=== PATIENT | female | born 1955 | race Hispanic/Latino ===

== ENCOUNTER → 2017-05-02 | Outpatient (CLI) | payer MEDICAID ==
[~2017-05-02] MED LIST: ALBU8.5H8 IH; APIX5TAB PO; ASPI-1197 PO; DOXY200T3 PO; FURO20TA6 PO; LACT10SO9 PO; LISI-613 PO; LISI10TA7 PO; OMEP40CA37 PO; SPIR50TA3 PO
[2017-05-02 10:20] LABS: ALBUMIN 1.8 g/dL (3.5-5.0); BASOPHILS % (AUTO) 0.7 % (0.0-5.0); BILIRUBIN,TOTAL 0.5 mg/dL (0.2-1.0); CREATININE 0.7 mg/dL (0.5-1.5); EOSINOPHILS % (AUTO) 3.8 % (0.0-8.0); HEMATOCRIT 38.1 % (36-48); INR 1.01 (0.85-1.15); LYMPHOCYTES % (AUTO) 33.2 % (21.0-51.0); MEAN CORPUSCULAR HEMOGLOBIN 31.8 pg (27.0-33.0); MEAN CORPUSCULAR HGB CONC 33.3 g/dL (32.0-36.0); MEAN CORPUSCULAR VOLUME 95.5 fL (79-99); NEUTROPHILS % (AUTO) 52.3 % (40.0-77.0); PLATELET COUNT (AUTO) 192 K/uL (130-400); POTASSIUM 4.6 mmol/L (3.5-5.1); PROTHROMBIN TIME 10.6 SEC (9.6-11.6); RED BLOOD CELL COUNT(AUTO) 3.99 MIL/uL (4.00-5.50); RED CELL DISTRIBUTION WIDTH 13.3 % (11.0-15.5); TOTAL PROTEIN, SERUM 7.2 g/dL (6.0-8.3); WHITE BLOOD COUNT (AUTO) 5.1 K/uL (4.8-10.8)
[2017-05-02 13:53] LABS: APPEARANCE BODY FLUID CLOUDY (CLEAR); BODY FLUID WBC 373 /cu. mm.; COLOR,BODY FLUID COLORLESS (LT YELLOW); SPECIMENTYPE,BODY FLUID ASCITES; TOTAL VOLUME,BODY FLUID 4200 mL
[2017-05-02 13:54] LABS: BODY FLUID RBC 50 /cu. mm.
[2017-05-02 14:00] LABS: ALBUMIN,BODY FLUID < 0.6 g/dL
[2017-05-02 14:03] LABS: BF LYMPHOCYTE 42 %; BF MESOTHELIAL 2 %; BF MONOCYTE 43 %
== END | disposition home or self-care (01) ==
LOC: RAH 09:16
PROVIDERS: ATTEND Internal Medicine Gastroenterology
DX: R18.8 Other ascites (principal); K21.9 Gastro-esophageal reflux disease without esophagitis; I10 Essential (primary) hypertension; E11.9 Type 2 diabetes mellitus without complications; M19.90 Unspecified osteoarthritis, unspecified site; Z88.6 Allergy status to analgesic agent; Z87.19 Personal history of other diseases of the digestive system
CPT/HCPCS: 36415; 49083; 80053; 82042; 84157; 85025; 85610; 87071; 87076; 87205; 88108; 88305; 89051

== ENCOUNTER → 2017-06-06 | Outpatient (CLI) | payer MEDICAID ==
[2017-06-06 13:22] LABS: BASOPHILS % (AUTO) 0.7 % (0.0-5.0); HEMATOCRIT 36.7 % (36-48); LYMPHOCYTES % (AUTO) 30.1 % (21.0-51.0); MEAN CORPUSCULAR HEMOGLOBIN 31.7 pg (27.0-33.0); MEAN CORPUSCULAR HGB CONC 33.2 g/dL (32.0-36.0); MEAN CORPUSCULAR VOLUME 95.3 fL (79-99); MONOCYTES % (AUTO) 6.7 % (3.0-13.0); NEUTROPHILS % (AUTO) 57.5 % (40.0-77.0); PLATELET COUNT (AUTO) 221 K/uL (130-400); RED BLOOD CELL COUNT(AUTO) 3.86 MIL/uL (4.00-5.50); RED CELL DISTRIBUTION WIDTH 14.3 % (11.0-15.5); WHITE BLOOD COUNT (AUTO) 4.6 K/uL (4.8-10.8)
[2017-06-06 13:39] LABS: ALBUMIN 1.8 g/dL (3.5-5.0); BILIRUBIN,TOTAL 0.3 mg/dL (0.2-1.0); CREATININE 0.8 mg/dL (0.5-1.5); POTASSIUM 3.5 mmol/L (3.5-5.1); TOTAL PROTEIN, SERUM 7.6 g/dL (6.0-8.3)
[2017-06-06 13:44] LABS: INR 1.01 (0.85-1.15); PROTHROMBIN TIME 10.6 SEC (9.6-11.6)
[2017-06-06 13:54] LABS: FERRITIN 53 ng/mL (15-150); IRON, SERUM 52 mcg/dL (50-170)
[2017-06-06 17:52] LABS: APPEARANCE BODY FLUID SLIGHTLY CLOUDY (CLEAR); COLOR,BODY FLUID YELLOW (LT YELLOW); SPECIMENTYPE,BODY FLUID ASCITES; TOTAL VOLUME,BODY FLUID 4500 mL
[2017-06-06 17:53] LABS: BODY FLUID RBC 475 /cu. mm.; BODY FLUID WBC 292 /cu. mm.
[2017-06-06 19:50] LABS: BF LYMPHOCYTE 76 %; BF MESOTHELIAL 3 %
== END | disposition home or self-care (01) ==
LOC: RAH 12:11
PROVIDERS: ATTEND Internal Medicine Gastroenterology
DX: R18.8 Other ascites (principal); K21.9 Gastro-esophageal reflux disease without esophagitis; I10 Essential (primary) hypertension; E11.9 Type 2 diabetes mellitus without complications; M19.90 Unspecified osteoarthritis, unspecified site; Z88.5 Allergy status to narcotic agent; Z88.1 Allergy status to other antibiotic agents; B18.2 Chronic viral hepatitis C; K74.69 Other cirrhosis of liver
CPT/HCPCS: 36415; 49083; 80053; 82728; 83540; 85025; 85610; 86038; 86215; 86235; 86255; 86334; 89051

== ENCOUNTER → 2017-07-11 | Outpatient (CLI) | payer MEDICAID ==
[2017-07-11 10:46] LABS: EOSINOPHILS % (AUTO) 3.7 % (0.0-8.0); HEMATOCRIT 35.5 % (36-48); LYMPHOCYTES % (AUTO) 18.3 % (21.0-51.0); MEAN CORPUSCULAR HEMOGLOBIN 32.1 pg (27.0-33.0); MEAN CORPUSCULAR HGB CONC 33.9 g/dL (32.0-36.0); MEAN CORPUSCULAR VOLUME 94.8 fL (79-99); MONOCYTES % (AUTO) 5.4 % (3.0-13.0); NEUTROPHILS % (AUTO) 71.6 % (40.0-77.0); PLATELET COUNT (AUTO) 210 K/uL (130-400); RED BLOOD CELL COUNT(AUTO) 3.74 MIL/uL (4.00-5.50); WHITE BLOOD COUNT (AUTO) 5.9 K/uL (4.8-10.8)
[2017-07-11 10:56] LABS: PROTHROMBIN TIME 10.5 SEC (9.6-11.6)
[2017-07-11 10:59] LABS: ALBUMIN 1.8 g/dL (3.5-5.0); BILIRUBIN,TOTAL 0.4 mg/dL (0.2-1.0); CREATININE 0.8 mg/dL (0.5-1.5); POTASSIUM 4.1 mmol/L (3.5-5.1); TOTAL PROTEIN, SERUM 7.6 g/dL (6.0-8.3)
== END | disposition home or self-care (01) ==
LOC: RAH 10:14
PROVIDERS: ATTEND Internal Medicine Gastroenterology
DX: R18.8 Other ascites (principal)
CPT/HCPCS: 36415; 76705; 80053; 85025; 85610

== ENCOUNTER 2017-09-28 19:34 | Observation (INO) | payer MEDICAID ==
[~2017-09-28] VITALS: Ht 152.4 cm; Wt 69.9 kg
[~2017-09-28 19:34] MED LIST changes: -ALBU8.5H8 IH; -ASPI-1197 PO; -DOXY200T3 PO; -FURO20TA6 PO; -LACT10SO9 PO; -LISI-613 PO; -OMEP40CA37 PO; -SPIR50TA3 PO
[2017-09-28 20:03] LABS: BASOPHILS % (AUTO) 1.3 % (0.0-5.0); EOSINOPHILS % (AUTO) 3.7 % (0.0-8.0); HEMATOCRIT 34.2 % (36-48); LYMPHOCYTES % (AUTO) 25.4 % (21.0-51.0); MEAN CORPUSCULAR HEMOGLOBIN 31.9 pg (27.0-33.0); MEAN CORPUSCULAR HGB CONC 33.9 g/dL (32.0-36.0); MEAN CORPUSCULAR VOLUME 94.1 fL (79-99); MONOCYTES % (AUTO) 7.2 % (3.0-13.0); NEUTROPHILS % (AUTO) 62.4 % (40.0-77.0); NUCLEATED RED BLOOD CELLS 0.1 % (0.0-0.19); PLATELET COUNT (AUTO) 197 K/uL (130-400); RED BLOOD CELL COUNT(AUTO) 3.63 MIL/uL (4.00-5.50); RED CELL DISTRIBUTION WIDTH 13.6 % (11.0-15.5); WHITE BLOOD COUNT (AUTO) 4.6 K/uL (4.8-10.8)
[2017-09-28] MEDS ORDERED: HYDROMORPHONE 1 MG/1 ML AMP ONE (20:03)
[2017-09-28] MEDS ORDERED: ONDANSETRON HCL MDV 20ML 2 MG/ML VIAL ONE (20:03)
[2017-09-28] MEDS ORDERED: SODIUM CHLORIDE 0.9% 1000ML 1,000 ML IV ONE (20:03)
[2017-09-28 20:04] LABS: APPEARANCE,URINE Clear (CLEAR); BILIRUBIN,URINE Negative (NEGATIVE); COLOR,URINE Yellow (YELLOW); GLUCOSE, URINE (UA) Negative (NEGATIVE); KETONES,URINE Negative (NEGATIVE); LEUKOCYTE ESTERASE ,URINE Negative (NEGATIVE); NITRATE,URINE Negative (NEGATIVE); OCCULT BLOOD,URINE Moderate (NEGATIVE); PH,URINE 5.5 (5.0-8.0); PROTEIN,URINE >=1000 (NEGATIVE)
[2017-09-28 20:12] LABS: POTASSIUM 3.7 mmol/L (3.5-5.1)
[2017-09-28 20:18] LABS: BACTERIA,URINE Few /HPF (None Seen); HYALINE CASTS, URINE 0-1 /LPF (0-1 /LPF); MUCUS,URINE Rare LPF (None Seen); SQUAMOUS EPITHELIAL CELL,UR Few /HPF (0-2)
[2017-09-28 20:21] LABS: ALBUMIN 1.9 g/dL (3.5-5.0); BILIRUBIN,TOTAL 0.3 mg/dL (0.2-1.0); TOTAL PROTEIN, SERUM 7.7 g/dL (6.0-8.3)
[2017-09-28] MEDS ORDERED: FAMOTIDINE/PF 20 MG/2 ML VIAL IV ONE (22:05)
[2017-09-28] MEDS ORDERED: DiphenhydrAMINE HCL 50 MG/ML VIAL ONE (22:05)
[2017-09-28 22:20] LABS: INR 0.96 (0.85-1.15); PARTIAL THROMBOPLASTIN TIME 25.7 SEC (26.3-35.5); PROTHROMBIN TIME 10.1 SEC (9.6-11.6)
[2017-09-29] MEDS ORDERED: DEXTROSE 50%-WATER 50 ML DISP.SYRIN IV PRN (01:00)
[2017-09-29] MEDS ORDERED: CLONIDINE HCL 0.1 MG TABLET PO PRN (01:00)
[2017-09-29] MEDS ORDERED: LIDOCAINE HCL-MPF 1% 2ML VIAL IJ PRN (01:00)
[2017-09-29] MEDS ORDERED: MEPERIDINE HCL/PF 25 MG/ML 1ML VIAL IV PRN (01:00)
[2017-09-29] MEDS ORDERED: POTASSIUM CHLORIDE 20MEQ/100ML 100 ML IV PRN (01:00)
[2017-09-29] MEDS ORDERED: ONDANSETRON HCL MDV 20ML 2 MG/ML VIAL IVP PRN (01:00)
[2017-09-29] MEDS ORDERED: POTASSIUM CHLORIDE 10% ELIXIR 20 MEQ/15 ML UDCUP PO PRN (01:00)
[2017-09-29] MEDS ORDERED: GLUCAGON 1MG KIT 1 MG ML IM PRN (01:00)
[2017-09-29] MEDS ORDERED: MEPERIDINE-PF 25 MG/ML SYG IV PRN ×2 (01:00→03:22)
[2017-09-29 01:25] VITALS: BP 138/80
[2017-09-29] MEDS ORDERED: OMEP40CA37 PO (02:12)
[2017-09-29] MEDS ORDERED: LISI-613 PO (02:12)
[2017-09-29 04:53] VITALS: BP 144/85
[2017-09-29 05:28] LABS: BASOPHILS % (AUTO) 0.7 % (0.0-5.0); EOSINOPHILS % (AUTO) 6.2 % (0.0-8.0); HEMATOCRIT 29.3 % (36-48); LYMPHOCYTES % (AUTO) 31.8 % (21.0-51.0); MEAN CORPUSCULAR HEMOGLOBIN 33.7 pg (27.0-33.0); MEAN CORPUSCULAR HGB CONC 35.6 g/dL (32.0-36.0); MEAN CORPUSCULAR VOLUME 94.7 fL (79-99); MONOCYTES % (AUTO) 11.1 % (3.0-13.0); NEUTROPHILS % (AUTO) 50.2 % (40.0-77.0); PLATELET COUNT (AUTO) 149 K/uL (130-400); RED CELL DISTRIBUTION WIDTH 13.6 % (11.0-15.5); WHITE BLOOD COUNT (AUTO) 4.3 K/uL (4.8-10.8)
[2017-09-29 05:46] LABS: PARTIAL THROMBOPLASTIN TIME 26.4 SEC (26.3-35.5); PROTHROMBIN TIME 10.5 SEC (9.6-11.6)
[2017-09-29] MEDS: INSULIN R PO SS1 SQ SCH ×4 (05:50→20:44)
[2017-09-29 05:54] LABS: POTASSIUM 3.5 mmol/L (3.5-5.1)
[2017-09-29] MEDS: FAMOTIDINE 20MG TAB 20 MG TAB PO SCH ×2 (08:19→19:40)
[2017-09-29] MEDS: POTASSIUM CHLORIDE 20 MEQ ERTAB PO PRN ×2 (08:20→12:26)
[2017-09-29 09:00] VITALS: BP 145/79
[2017-09-29 11:35] VITALS: BP 162/85
[2017-09-29 16:56] VITALS: BP 161/75
[2017-09-29 19:05] VITALS: BP 172/91
[2017-09-29] MEDS: LACTULOSE 20 GM/30 ML UDCUP PO PRN (22:58)
[2017-09-30 00:26] VITALS: BP 166/81
[2017-09-30 03:20] VITALS: BP 180/92
[2017-09-30 04:39] VITALS: BP 160/89
[2017-09-30 05:48] LABS: HEMATOCRIT 30.3 % (36-48); MEAN CORPUSCULAR HEMOGLOBIN 32.3 pg (27.0-33.0); PLATELET COUNT (AUTO) 162 K/uL (130-400); RED BLOOD CELL COUNT(AUTO) 3.19 MIL/uL (4.00-5.50); RED CELL DISTRIBUTION WIDTH 13.4 % (11.0-15.5); WHITE BLOOD COUNT (AUTO) 3.8 K/uL (4.8-10.8)
[2017-09-30 05:58] LABS: EOSINOPHILS % (MANUAL) 8 % (1-6); LYMPHOCYTES % (MANUAL) 28 % (22-44); MAN.DIFF COMMENT-IMPRESSION MANUAL DIFFERENTIAL; MONOCYTES % (MANUAL) 4 % (2-9); PLATELET MORPHOLOGY COMMENT ADEQUATE; SEGMENTED NEUTROPHILS % 60 % (40-70)
[2017-09-30 06:01] LABS: CREATININE 0.8 mg/dL (0.5-1.5); POTASSIUM 4.2 mmol/L (3.5-5.1)
[2017-09-30] MEDS: INSULIN R PO SS1 SQ SCH ×2 (07:03→11:30)
[2017-09-30] MEDS ORDERED: PANTOPRAZOLE SODIUM 40 MG TABLET.DR PO SCH (07:30)
[2017-09-30 07:49] VITALS: BP 152/66
[2017-09-30] MEDS: LACTULOSE 20 GM/30 ML UDCUP PO PRN (08:20)
[2017-09-30] MEDS: FAMOTIDINE 20MG TAB 20 MG TAB PO SCH (08:21)
[2017-09-30] MEDS ORDERED: LISINOPRIL 20 MG TABLET PO SCH (09:00)
[2017-09-30 10:59] VITALS: BP 165/87
[2017-09-30] MEDS ORDERED: FURO20TA6 PO (11:32)
[2017-09-30] MEDS ORDERED: SPIR50TA5 PO (11:32)
[2017-09-30] MEDS ORDERED: ALBUMIN (HUMAN) 25% 200 ML IV ONE (16:30)
[2017-09-30 17:29] LABS: APPEARANCE BODY FLUID SLIGHTLY CLOUDY (CLEAR); COLOR,BODY FLUID LT YELLOW (LT YELLOW); SPECIMENTYPE,BODY FLUID ASCITES; TOTAL VOLUME,BODY FLUID 1000 mL
[2017-09-30 17:30] LABS: BODY FLUID RBC 1189 /cu. mm.; BODY FLUID WBC 94 /cu. mm.
[2017-09-30 20:22] LABS: BF LYMPHOCYTE 87 %; BF MONOCYTE 1 %
[2017-11-11] MEDS ORDERED: ALBU8.5H8 IH (15:30)
[2017-11-11] MEDS ORDERED: LACT10SO9 PO (15:30)
[2017-11-11] MEDS ORDERED: DOXY200T3 PO (15:30)
[2017-11-11] MEDS ORDERED: ASPI-1197 PO (15:30)
== END 2017-09-30 16:45 | disposition home or self-care (01) ==
LOC: EDH 19:34 → EDHIP 19:35 → 4BH 09-29 00:38
PROVIDERS: ADMIT Family Medicine; ATTEND Family Medicine
DX: K70.31 Alcoholic cirrhosis of liver with ascites (principal); B19.20 Unspecified viral hepatitis C without hepatic coma; I10 Essential (primary) hypertension; E11.9 Type 2 diabetes mellitus without complications; I48.91 Unspecified atrial fibrillation; K59.00 Constipation, unspecified; F17.210 Nicotine dependence, cigarettes, uncomplicated; Z85.42 Personal history of malignant neoplasm of other parts of uterus; Z90.710 Acquired absence of both cervix and uterus; Z90.49 Acquired absence of other specified parts of digestive tract
CPT/HCPCS: 36415 ×3; 49083; 74176; 80048 ×2; 80053; 81001; 82948 ×6; 83690; 85025 ×3; 85610 ×2; 85730 ×2; 87071; 87205; 89051; 93005; 96365; 99285; G0378 ×45; J1170; J1200; J3490; J7030; P9046

== ENCOUNTER → 2018-05-19 | Outpatient (CLI) | payer MEDICAID ==
[~2018-05-19] MED LIST changes: +ALBU8.5H8 IH; -APIX5TAB PO; +ASPI-1197 PO; +DOXY200T3 PO; +FURO20TA6 PO; +LACT10SO9 PO; +LIDOCAINE HCL 1% 20 ML VIAL ONE; +LISI-613 PO; -LISI10TA7 PO; +OMEP40CA37 PO; +SPIR50TA5 PO
[2018-05-19 09:18] LABS: BASOPHILS % (AUTO) 0.7 % (0.0-5.0); EOSINOPHILS % (AUTO) 6.2 % (0.0-8.0); HEMATOCRIT 39.4 % (36-48); LYMPHOCYTES % (AUTO) 23.5 % (21.0-51.0); MEAN CORPUSCULAR HEMOGLOBIN 31.4 pg (27.0-33.0); MEAN CORPUSCULAR HGB CONC 32.7 g/dL (32.0-36.0); MONOCYTES % (AUTO) 6.9 % (3.0-13.0); NEUTROPHILS % (AUTO) 62.7 % (40.0-77.0); NUCLEATED RED BLOOD CELLS 0.1 % (0.0-0.19); PLATELET COUNT (AUTO) 151 K/uL (130-400); RED CELL DISTRIBUTION WIDTH 13.3 % (11.0-15.5); WHITE BLOOD COUNT (AUTO) 3.5 K/uL (4.8-10.8)
[2018-05-19 09:39] LABS: ALBUMIN 2.9 g/dL (3.5-5.0); BILIRUBIN,TOTAL 0.5 mg/dL (0.2-1.0); INR 0.95 (0.85-1.15); POTASSIUM 4.1 mmol/L (3.5-5.1); TOTAL PROTEIN, SERUM 7.7 g/dL (6.0-8.3)
--- NOTE | 2018-05-19 10:22 | NUR ---
PROCEDURE PATIENT SCHEDULED FOR U/S GD PARACENTESIS. IMAGES TAKEN AND REVIEWED BY DR Susannah DE LOS SANTOS. NO FLUID SEEN AND PROCEDURE CANCELLED.
== END | disposition home or self-care (01) ==
LOC: RAH 08:54
PROVIDERS: ATTEND Internal Medicine Gastroenterology
DX: K74.60 Unspecified cirrhosis of liver (principal); R18.8 Other ascites
CPT/HCPCS: 36415; 76705; 80053; 82105; 85025; 85610

== ENCOUNTER → 2018-07-22 | Outpatient (CLI) | payer MEDICAID ==
[~2018-07-22] MED LIST changes: -LIDOCAINE HCL 1% 20 ML VIAL ONE
== END | disposition home or self-care (01) ==
LOC: RAH 08:50
PROVIDERS: ATTEND Internal Medicine Gastroenterology
DX: K74.60 Unspecified cirrhosis of liver (principal); K76.0 Fatty (change of) liver, not elsewhere classified; Z90.49 Acquired absence of other specified parts of digestive tract
CPT/HCPCS: 76700; 93975

== ENCOUNTER 2018-08-08 08:25 | Day surgery (SDC) | payer MEDICAID ==
[2018-08-08 08:25] VITALS: BP 151/78
[2018-08-08] MEDS ORDERED: SODIUM CHLORIDE 0.9% 1000ML 1,000 ML IV ONE (08:48)
[2018-08-08] MEDS ORDERED: SODIUM CHLORIDE 0.9% 500ML 500 ML IV SCH (09:00)
[2018-08-08] MEDS ORDERED: IOHEXOL-350 75 ML VIAL IV ONE (11:55)
[2018-08-08 12:35] VITALS: BP 142/81
== END 2018-08-08 12:39 | disposition home or self-care (01) ==
LOC: DAH 08:25
PROVIDERS: ATTEND Internal Medicine Gastroenterology
DX: K74.60 Unspecified cirrhosis of liver (principal); B18.2 Chronic viral hepatitis C; R77.2 Abnormality of alphafetoprotein; Z90.49 Acquired absence of other specified parts of digestive tract
CPT/HCPCS: 74170; J7030; Q9967

== ENCOUNTER → 2018-09-26 | Outpatient (CLI) | payer MEDICAID ==
[~2018-09-26] MED LIST changes: +GADODIAMIDE 10 MMOL/20 ML VIAL IV ONE
== END | disposition home or self-care (01) ==
LOC: RAH 08:47
PROVIDERS: ATTEND Internal Medicine Gastroenterology
DX: K74.60 Unspecified cirrhosis of liver (principal); R77.2 Abnormality of alphafetoprotein
CPT/HCPCS: 74183; A9579

== ENCOUNTER 2018-11-11 13:21 | Emergency (ER) | payer MEDICAID ==
[~2018-11-11 13:21] MED LIST changes: -GADODIAMIDE 10 MMOL/20 ML VIAL IV ONE
[2018-11-11 14:09] LABS: BASOPHILS % (AUTO) 0.9 % (0.0-5.0); EOSINOPHILS % (AUTO) 4.1 % (0.0-8.0); HEMATOCRIT 37.5 % (36-48); LYMPHOCYTES % (AUTO) 14.8 % (21.0-51.0); MEAN CORPUSCULAR HEMOGLOBIN 33.2 pg (27.0-33.0); MEAN CORPUSCULAR HGB CONC 33.9 g/dL (32.0-36.0); MONOCYTES % (AUTO) 8.6 % (3.0-13.0); NEUTROPHILS % (AUTO) 71.6 % (40.0-77.0); PLATELET COUNT (AUTO) 136 K/uL (130-400); RED BLOOD CELL COUNT(AUTO) 3.82 MIL/uL (4.00-5.50)
[2018-11-11 14:27] LABS: ALBUMIN 2.9 g/dL (3.5-5.0); BILIRUBIN,TOTAL 0.8 mg/dL (0.2-1.0); CREATININE 1.5 mg/dL (0.5-1.5); POTASSIUM 5.2 mmol/L (3.5-5.1); TOTAL PROTEIN, SERUM 7.2 g/dL (6.0-8.3)
[2018-11-11 14:54] LABS: APPEARANCE,URINE CLEAR (CLEAR); BILIRUBIN,URINE NEGATIVE (NEGATIVE); COLOR,URINE YELLOW (YELLOW); GLUCOSE, URINE (UA) >=1000 mg/dL (NEGATIVE); KETONES,URINE NEGATIVE (NEGATIVE); LEUKOCYTE ESTERASE ,URINE NEGATIVE (NEGATIVE); NITRATE,URINE NEGATIVE (NEGATIVE); OCCULT BLOOD,URINE NEGATIVE (NEGATIVE); PH,URINE 5.5 (5.0-8.0); PROTEIN,URINE NEGATIVE (NEGATIVE); UROBILINOGEN,URINE 0.2 mg/dL (0.2-1.0)
[2018-11-11] MEDS ORDERED: ONDANSETRON HCL 4 MG/2 ML VIAL ONE (15:07)
[2018-11-11] MEDS ORDERED: MEPERIDINE-PF 25 MG/ML SYG ONE (15:08)
[2018-11-11] MEDS ORDERED: SODIUM CHLORIDE 0.9% 1000ML 1,000 ML IV ONE (15:10)
[2018-11-11] MEDS ORDERED: INSULIN HUMULIN R 100 UNIT/ML 3ML ONE ×2 (16:24→17:03)
[2018-11-15] MEDS ORDERED: CIPR-245 PO (10:55)
[2018-11-15] MEDS ORDERED: SPIR100T5 PO (10:55)
[2018-11-15] MEDS ORDERED: FURO40TA5 PO (10:55)
[2018-11-16] MEDS ORDERED: METF-444 PO (17:10)
== END 2018-11-11 17:45 | disposition home or self-care (01) ==
LOC: EDH 13:21
DX: K74.60 Unspecified cirrhosis of liver (principal); K52.9 Noninfective gastroenteritis and colitis, unspecified; I10 Essential (primary) hypertension; E11.9 Type 2 diabetes mellitus without complications; Z88.6 Allergy status to analgesic agent; Z88.8 Allergy status to other drugs, medicaments and biological substances; Z72.0 Tobacco use
CPT/HCPCS: 36415; 74176; 80053; 81003; 82948; 83690; 96361; 96374; 85025; 96375; 96376; 99285; J1815 ×2; J2175; J2405; J7030

== ENCOUNTER 2018-11-19 11:32 | Observation (INO) | payer MEDICAID ==
[~2018-11-19] VITALS: Ht 152.4 cm; Wt 66.7 kg
[~2018-11-19 11:32] MED LIST changes: +CIPR-245 PO; -DOXY200T3 PO; -FURO20TA6 PO; +FURO40TA5 PO; +METF-444 PO; +SPIR100T5 PO; -SPIR50TA5 PO
[2018-11-19] MEDS ORDERED: ONDANSETRON HCL 4 MG/2 ML VIAL ONE (11:47)
[2018-11-19 12:05] LABS: BASOPHILS % (AUTO) 0.4 % (0.0-5.0); EOSINOPHILS % (AUTO) 1.8 % (0.0-8.0); HEMATOCRIT 37.4 % (36-48); LYMPHOCYTES % (AUTO) 7.2 % (21.0-51.0); MEAN CORPUSCULAR HEMOGLOBIN 34.4 pg (27.0-33.0); MEAN CORPUSCULAR HGB CONC 35.1 g/dL (32.0-36.0); MONOCYTES % (AUTO) 7.1 % (3.0-13.0); NEUTROPHILS % (AUTO) 83.5 % (40.0-77.0); PLATELET COUNT (AUTO) 157 K/uL (130-400); RED BLOOD CELL COUNT(AUTO) 3.82 MIL/uL (4.00-5.50); WHITE BLOOD COUNT (AUTO) 7.2 K/uL (4.8-10.8)
[2018-11-19 12:11] LABS: APPEARANCE,URINE Clear (CLEAR); BILIRUBIN,URINE Small (NEGATIVE); COLOR,URINE Dark Yellow (YELLOW); GLUCOSE, URINE (UA) Negative (NEGATIVE); KETONES,URINE Negative (NEGATIVE); LEUKOCYTE ESTERASE ,URINE Negative (NEGATIVE); NITRATE,URINE Negative (NEGATIVE); OCCULT BLOOD,URINE Negative (NEGATIVE); PROTEIN,URINE Trace mg/dL (NEGATIVE)
[2018-11-19 12:18] LABS: AMPHET/METH SCREEN,URINE NEGATIVE (NEGATIVE); BARBITURATE SCREEN, URINE NEGATIVE (NEGATIVE); BENZODIAZEPINES SCREEN,URINE NEGATIVE (NEGATIVE); CANNABINOID SCREEN,URINE NEGATIVE (NEGATIVE); COCAINE SCREEN,URINE NEGATIVE (NEGATIVE); CREATININE 2.3 mg/dL (0.5-1.5); OPIATE SCREEN,URINE NEGATIVE (NEGATIVE); PHENCYCLIDINE SCREEN,URINE NEGATIVE (NEGATIVE); POTASSIUM 5.3 mmol/L (3.5-5.1)
[2018-11-19 12:19] LABS: BACTERIA,URINE Rare /HPF (None Seen); MUCUS,URINE Few LPF (None Seen); RBC,URINE 0-1 /HPF (0-1); SQUAMOUS EPITHELIAL CELL,UR Rare /HPF (0-2); WBC,URINE 0-1 /HPF (0-1)
[2018-11-19 12:20] LABS: INR 1.02 (0.85-1.15); PARTIAL THROMBOPLASTIN TIME 25.9 SEC (26.3-35.5); PROTHROMBIN TIME 10.7 SEC (9.6-11.6)
[2018-11-19] MEDS ORDERED: MEROPENEM 500 MG VIAL ONE (12:22)
[2018-11-19] MEDS ORDERED: SODIUM CHLORIDE 0.9% 1000ML 1,000 ML IV ONE (12:22)
[2018-11-19 12:26] LABS: ALBUMIN 2.8 g/dL (3.5-5.0); BILIRUBIN,DIRECT 1.9 mg/dL (0.0-0.3); BILIRUBIN,TOTAL 2.6 mg/dL (0.2-1.0); TOTAL PROTEIN, SERUM 7.3 g/dL (6.0-8.3)
[2018-11-19] MEDS ORDERED: LACTULOSE 20 GM/30 ML UDCUP ONE (16:42)
[2018-11-19] MEDS ORDERED: LEVOFLOXACIN 500 MG/D5W 100 ML 100 ML ONE (17:10)
[2018-11-19] MEDS ORDERED: FAMOTIDINE/PF 20 MG/2 ML VIAL IV ONE (17:11)
[2018-11-19] MEDS ORDERED: ALBUMIN (HUMAN) 25% 100 ML IV ONE (19:37)
[2018-11-19] MEDS ORDERED: GLUCAGON 1MG KIT 1 MG ML IM PRN (21:30)
[2018-11-19] MEDS ORDERED: DEXTROSE 50%-WATER 50 ML DISP.SYRIN IV PRN (21:30)
[2018-11-19] MEDS ORDERED: PHARMACY COMMUNICATION MISC SCH ×2 (21:30)
[2018-11-19] MEDS ORDERED: HYDROMORPHONE 1 MG/1 ML AMP IVP PRN (21:30)
[2018-11-19] MEDS ORDERED: ONDANSETRON HCL 4 MG/2 ML VIAL IVP PRN (21:30)
[2018-11-19 22:01] VITALS: BP 134/70
[2018-11-19] MEDS: LACTULOSE 20 GM/30 ML UDCUP PO SCH (23:18)
[2018-11-19] MEDS: OCTREOTIDE ACETATE 100 MCG/ML AMP SQ SCH (23:18)
[2018-11-20] VITALS (7 sets, daily range): BP systolic 102–178; BP diastolic 65–74
[2018-11-20] MEDS ORDERED: DEXTROSE 50%-WATER 50 ML DISP.SYRIN IV PRN (02:15)
[2018-11-20] MEDS ORDERED: ACETAMINOPHEN 325 MG TAB PO PRN (02:15)
[2018-11-20] MEDS ORDERED: GLUCAGON 1MG KIT 1 MG ML IM PRN (02:15)
[2018-11-20] MEDS ORDERED: HYDROCODONE/ACETAMINOPHEN 5/325 MG TAB PO PRN (02:30)
[2018-11-20] MEDS ORDERED: ONDANSETRON HCL 4 MG/2 ML VIAL IVP PRN (02:30)
[2018-11-20] MEDS ORDERED: HYDROMORPHONE 1 MG/1 ML AMP IVP PRN (02:30)
[2018-11-20 05:43] LABS: HEMATOCRIT 32.1 % (36-48); MEAN CORPUSCULAR HEMOGLOBIN 33.3 pg (27.0-33.0); MEAN CORPUSCULAR HGB CONC 33.6 g/dL (32.0-36.0); MEAN CORPUSCULAR VOLUME 98.9 fL (79-99); PLATELET COUNT (AUTO) 140 K/uL (130-400); RED BLOOD CELL COUNT(AUTO) 3.25 MIL/uL (4.00-5.50); RED CELL DISTRIBUTION WIDTH 13.2 % (11.0-15.5); WHITE BLOOD COUNT (AUTO) 5.6 K/uL (4.8-10.8)
[2018-11-20 05:49] LABS: ALBUMIN 2.7 g/dL (3.5-5.0); BILIRUBIN,TOTAL 2.6 mg/dL (0.2-1.0); CREATININE 2.4 mg/dL (0.5-1.5); POTASSIUM 5.6 mmol/L (3.5-5.1); TOTAL PROTEIN, SERUM 6.3 g/dL (6.0-8.3)
[2018-11-20] MEDS: LACTULOSE 20 GM/30 ML UDCUP PO SCH ×4 (05:57→21:34)
[2018-11-20] MEDS: OCTREOTIDE ACETATE 100 MCG/ML AMP SQ SCH ×3 (05:58→21:34)
[2018-11-20] MEDS ORDERED: OCTREOTIDE ACETATE 100 MCG/ML AMP SQ SCH (06:00)
[2018-11-20] MEDS: INSULIN R PO SS1 SQ SCH ×4 (06:22→21:00)
[2018-11-20] MEDS ORDERED: INSULIN R PO SS1 SQ SCH (07:30)
[2018-11-20] MEDS: MIDODRINE HCL 5 MG TABLET PO SCH ×3 (08:54→21:34)
[2018-11-20] MEDS: FAMOTIDINE/PF 20 MG/2 ML VIAL IV SCH (08:55)
[2018-11-20] MEDS: ALBUMIN (HUMAN) 25% 100 ML IV SCH ×2 (08:56→21:34)
[2018-11-20] MEDS ORDERED: MIDODRINE HCL 5 MG TABLET PO SCH (09:00)
[2018-11-20] MEDS ORDERED: FAMOTIDINE/PF 20 MG/2 ML VIAL IV SCH (09:00)
[2018-11-20] MEDS ORDERED: SODIUM BICARB 50MEQ 50ML VIAL IV SCH (12:45)
[2018-11-20] MEDS ORDERED: SODIUM POLYSTYRENE SULFONATE 15 GM/60 ML ML PO SCH (12:45)
[2018-11-20] MEDS ORDERED: CALCIUM GLUCONATE 1 GM/10 ML VIAL IV SCH (12:45)
[2018-11-20] MEDS ORDERED: DEXTROSE 50%-WATER 25 GM/50 ML VIAL IV SCH (12:45)
[2018-11-20] MEDS ORDERED: CALCIUM GLUCONATE 1 GM in SODIUM CHLORIDE 0.9% 50 ML IV SCH (13:30)
[2018-11-20] MEDS ORDERED: DEXTROSE 50%-WATER 50 ML DISP.SYRIN IV SCH (13:30)
[2018-11-20] MEDS: INSULIN HUMULIN R 100 UNIT/ML 3ML SQ SCH (13:33)
--- NOTE | 2018-11-20 14:03 | NUR ---
DENISHA Fine met with pt who states her son Alejandro and grand yariel Owen live with her. Daughter Cruz Langley [phone] is provider 32hrs a week thru [facility], pt has no HH, has vignesh baker shbrie chair and nebulizer. Plan is home at [place] Addendum: 11/20/18 at 1405 by SHELBY AGUIRRE Amended: Links added. Addendum: 11/20/18 at 1413 by SHELBY AGUIRRE Documented on wrong patient. PLEASE see corrected IA/DENISHA
--- NOTE | 2018-11-20 14:09 | NUR ---
CORRECTED IA/DCP SW met with pt and family. Pt states her grandson and grand daughter live with her. Pt has provider 24hrs a week thru [facility], no HH, has w/c, & shwr chr. Daughters Lexie [phone] and dAela Dave [phone] are ER contacts. Plan is home at [place] Addendum: 11/20/18 at 1412 by SHELBY AGUIRRE Amended: Links added.
[2018-11-21 04:00] VITALS: BP 148/63
[2018-11-21] MEDS: OCTREOTIDE ACETATE 100 MCG/ML AMP SQ SCH ×2 (04:54→14:03)
[2018-11-21] MEDS: LACTULOSE 20 GM/30 ML UDCUP PO SCH ×3 (04:54→18:12)
[2018-11-21] MEDS: INSULIN R PO SS1 SQ SCH ×3 (06:07→16:30)
[2018-11-21 07:30] VITALS: BP 149/72
--- NOTE | 2018-11-21 08:45 | NUR ---
U/S GD PARACENTESIS ORDERED NOT PERFORMED DUE TO NO FLUID ULTRASOUND PERFORMED BY SILVINO RAO. DR. WAY REVIEWED IMAGES AND STATES, "NOT ENOUGH FLUID TO SAFELY DO PROCEDURE." PATIENT INFORMED OF RESULTS. REPORT GIVEN TO MAN DASILVA AND PATIENT TRANSPORTED TO [facility] VIA W/C. PT STABLE, AAO X3 WITH NO C/O PAIN.
[2018-11-21] MEDS ORDERED: LEVOFLOXACIN 500 MG/D5W 100 ML 100 ML IV SCH (09:00)
[2018-11-21] MEDS: ALBUMIN (HUMAN) 25% 100 ML IV SCH (09:48)
[2018-11-21] MEDS: FAMOTIDINE/PF 20 MG/2 ML VIAL IV SCH (09:48)
[2018-11-21] MEDS: MIDODRINE HCL 5 MG TABLET PO SCH ×2 (09:48→14:03)
[2018-11-21 11:00] VITALS: BP 151/72
[2018-11-21] MEDS: INSULIN HUMULIN R 100 UNIT/ML 3ML SQ SCH (12:45)
[2018-11-21 16:00] VITALS: BP 160/82
== END 2018-11-21 19:40 | disposition home or self-care (01) ==
LOC: EDH 11:32 → EDHIP 11:33 → 4CH 20:58
PROVIDERS: ADMIT Internal Medicine Critical Care Medicine; ATTEND Internal Medicine Critical Care Medicine
DX: K70.31 Alcoholic cirrhosis of liver with ascites (principal); K72.00 Acute and subacute hepatic failure without coma; K72.10 Chronic hepatic failure without coma; N17.9 Acute kidney failure, unspecified; E11.22 Type 2 diabetes mellitus with diabetic chronic kidney disease; I12.9 Hypertensive chronic kidney disease with stage 1 through stage 4 chronic kidney disease, or unspecified chronic kidney disease; N18.9 Chronic kidney disease, unspecified; E87.5 Hyperkalemia; R53.81 Other malaise; F17.200 Nicotine dependence, unspecified, uncomplicated; Z88.0 Allergy status to penicillin; Z88.5 Allergy status to narcotic agent; Z90.710 Acquired absence of both cervix and uterus; Z90.89 Acquired absence of other organs
CPT/HCPCS: 36415 ×2; 74176; 76705; 80048; 80053; 80076; 80305; 81001; 82140 ×2; 82550; 82948 ×7; 83605 ×2; 83690; 84484; 84702; 85025; 85027; 85610; 85730; 87040 ×2; 93005; 96365; 96366 ×2; 96368; 96372 ×3; 96375 ×2; 96376 ×2; 99291; G0378 ×48; J0610; J1170; J1815 ×5; J1956 ×2; J2185; J2354 ×3; J2405 ×3; J3490 ×4; J7030; J7070; P9046 ×4

== ENCOUNTER 2018-11-25 00:05 | Emergency (ER) | payer MEDICAID ==
[~2018-11-25 00:05] MED LIST changes: -CIPR-245 PO
[2018-11-25] MEDS ORDERED: SODIUM CHLORIDE 0.9% 500ML 500 ML IV ONE (01:23)
[2018-11-25] MEDS ORDERED: ONDANSETRON HCL 4 MG/2 ML VIAL ONE (01:23)
[2018-11-25] MEDS ORDERED: PROCHLORPERAZINE EDISYLATE 10 MG/2 ML VIAL ONE (01:23)
[2018-11-25 01:31] LABS: BASOPHILS % (AUTO) 1.4 % (0.0-5.0); EOSINOPHILS % (AUTO) 1.8 % (0.0-8.0); HEMATOCRIT 34.6 % (36-48); LYMPHOCYTES % (AUTO) 7.2 % (21.0-51.0); MEAN CORPUSCULAR HEMOGLOBIN 33.8 pg (27.0-33.0); MEAN CORPUSCULAR HGB CONC 34.2 g/dL (32.0-36.0); NEUTROPHILS % (AUTO) 81.6 % (40.0-77.0); NUCLEATED RED BLOOD CELLS 0.1 % (0.0-0.19); PLATELET COUNT (AUTO) 169 K/uL (130-400); RED CELL DISTRIBUTION WIDTH 13.5 % (11.0-15.5); WHITE BLOOD COUNT (AUTO) 7.5 K/uL (4.8-10.8)
[2018-11-25 01:37] LABS: CREATININE 1.7 mg/dL (0.5-1.5); POTASSIUM 4.6 mmol/L (3.5-5.1)
[2018-11-25 01:41] LABS: ALBUMIN 3.1 g/dL (3.5-5.0); BILIRUBIN,DIRECT 4.9 mg/dL (0.0-0.3); TOTAL PROTEIN, SERUM 6.9 g/dL (6.0-8.3)
== END 2018-11-25 03:27 | disposition home or self-care (01) ==
LOC: EDH 00:05
DX: K52.9 Noninfective gastroenteritis and colitis, unspecified (principal); K74.60 Unspecified cirrhosis of liver; R11.2 Nausea with vomiting, unspecified; E11.9 Type 2 diabetes mellitus without complications; I10 Essential (primary) hypertension; Z90.49 Acquired absence of other specified parts of digestive tract; Z90.710 Acquired absence of both cervix and uterus; Z88.5 Allergy status to narcotic agent; Z88.1 Allergy status to other antibiotic agents; Z88.8 Allergy status to other drugs, medicaments and biological substances
CPT/HCPCS: 36415; 74176; 80048; 80076; 82140; 83690; 85025; 93005; 96361; 96374; 96375; 99285; J0780; J2405; J7040

== ENCOUNTER 2018-12-13 21:51 | Inpatient (IN) | payer MEDICAID ==
[~2018-12-13] VITALS: Ht 154.9 cm; Wt 68.6 kg
[2018-12-13 22:29] LABS: BASOPHILS % (AUTO) 0.9 % (0.0-5.0); EOSINOPHILS % (AUTO) 1.6 % (0.0-8.0); HEMATOCRIT 29.6 % (36-48); LYMPHOCYTES % (AUTO) 4.9 % (21.0-51.0); MEAN CORPUSCULAR HEMOGLOBIN 36.7 pg (27.0-33.0); MEAN CORPUSCULAR VOLUME 107.9 fL (79-99); MONOCYTES % (AUTO) 6.4 % (3.0-13.0); NEUTROPHILS % (AUTO) 86.2 % (40.0-77.0); PLATELET COUNT (AUTO) 177 K/uL (130-400); RED BLOOD CELL COUNT(AUTO) 2.75 MIL/uL (4.00-5.50); RED CELL DISTRIBUTION WIDTH 19.8 % (11.0-15.5); WHITE BLOOD COUNT (AUTO) 9.8 K/uL (4.8-10.8)
[2018-12-13] MEDS ORDERED: METOCLOPRAMIDE 10 MG/2 ML VIAL ONE (22:55)
[2018-12-13] MEDS ORDERED: ONDANSETRON HCL 4 MG/2 ML VIAL ONE (22:55)
[2018-12-13] MEDS ORDERED: FAMOTIDINE/PF 20 MG/2 ML VIAL IV ONE (22:56)
[2018-12-13 23:27] LABS: INR 1.15 (0.85-1.15); PARTIAL THROMBOPLASTIN TIME 27.9 SEC (26.3-35.5)
[2018-12-13 23:31] LABS: ALBUMIN 2.3 g/dL (3.5-5.0); BILIRUBIN,TOTAL 10.3 mg/dL (0.2-1.0); CREATININE 2.5 mg/dL (0.5-1.5)
[2018-12-13 23:36] LABS: POTASSIUM 6.9 mmol/L (3.5-5.1)
[2018-12-13] MEDS ORDERED: CALCIUM GLUCONATE 1 GM/10 ML VIAL IV ONE (23:49)
[2018-12-14] VITALS (7 sets, daily range): BP systolic 119–146; BP diastolic 55–67
[2018-12-14] MEDS ORDERED: SODIUM POLYSTYRENE SULFONATE 15 GM/60 ML ML ONE (00:01)
[2018-12-14] MEDS ORDERED: DiphenhydrAMINE HCL 50 MG/ML VIAL ONE (00:01)
[2018-12-14] MEDS ORDERED: LACTULOSE 20 GM/30 ML UDCUP ONE (00:01)
[2018-12-14] MEDS ORDERED: HYDRALAZINE HCL 20 MG/ML VIAL IV PRN (00:30)
[2018-12-14] MEDS ORDERED: ONDANSETRON HCL 4 MG/2 ML VIAL IV PRN (00:30)
[2018-12-14] MEDS: LACTULOSE 20 GM/30 ML UDCUP PO SCH ×4 (01:00→20:55)
[2018-12-14] MEDS ORDERED: ONDANSETRON HCL 4 MG/2 ML VIAL IVP PRN (01:30)
[2018-12-14] MEDS ORDERED: ONDA4TAB9 PO (01:49)
[2018-12-14] MEDS ORDERED: DICY10CA13 PO (01:49)
--- NOTE | 2018-12-14 02:00 | NUR ---
Pt. is lethargic,restless and confused,Family to bedside.Bed exit alarm activated.
[2018-12-14] MEDS ORDERED: SODIUM CHLORIDE 0.9% 1000ML 1,000 ML IV ONE (02:15)
[2018-12-14] MEDS ORDERED: CALCIUM GLUCONATE 1 GM in SODIUM CHLORIDE 0.9% 50 ML IV PRN (03:00)
[2018-12-14] MEDS ORDERED: SODIUM BICARB 50MEQ 50ML VIAL IV STA (03:00)
[2018-12-14] MEDS ORDERED: INSULIN HUMULIN R 100 UNIT/ML 3ML IV ONE (03:00)
[2018-12-14] MEDS ORDERED: LEVOFLOXACIN 500 MG/D5W 100 ML 100 ML IV SCH (03:30)
[2018-12-14] MEDS ORDERED: CALCIUM GLUCONATE 1 GM/10 ML VIAL IV ONE (03:37)
[2018-12-14] MEDS: SODIUM CHLORIDE 0.9% 1000ML 3,000 ML IV SCH ×2 (03:52→23:47)
[2018-12-14] MEDS: INSULIN HUMULIN R 100 UNIT/ML 3ML SQ SCH ×4 (07:28→21:06)
--- NOTE | 2018-12-14 07:30 | NUR ---
Bedside report given to incoming NOD using SBAR all questions answered.HEAD OF [employer]ET[employer] Sherri rounded and and updated with pt condition,no new order received.
--- NOTE | 2018-12-14 08:06 | NUR ---
Pt. is Pending to consult Neprologist Dr.Jorge Domingo.
[2018-12-14 08:24] LABS: CREATININE 2.4 mg/dL (0.5-1.5); POTASSIUM 5.8 mmol/L (3.5-5.1)
[2018-12-14] MEDS ORDERED: HEPARIN SODIUM 5000UNIT/ML 1ML VIAL SQ SCH (09:00)
[2018-12-14] MEDS ORDERED: SPIRONOLACTONE 25 MG TAB PO SCH (09:00)
[2018-12-14] MEDS ORDERED: LEVOFLOXACIN 250 MG/D5W 50ML 50 ML IV SCH (09:00)
[2018-12-14] MEDS ORDERED: ENOXAPARIN SODIUM 30 MG/0.3 ML SQ SCH (09:00)
[2018-12-14] MEDS: LEVOFLOXACIN 500 MG/D5W 100 ML 100 ML IV SCH (09:05)
[2018-12-14] MEDS ORDERED: FOLIC ACID 1 MG TABLET PO SCH (11:00)
[2018-12-14] MEDS ORDERED: SODIUM POLYSTYRENE SULFONATE 15 GM/60 ML ML PO SCH (11:00)
[2018-12-14] MEDS ORDERED: SODIUM BICARBONATE 650 MG TAB PO SCH (11:00)
[2018-12-14] MEDS ORDERED: THIAMINE HCL 100 MG TABLET PO SCH (11:00)
[2018-12-14] MEDS ORDERED: SODIUM BICARBONATE 650 MG TAB PO PRN (11:00)
[2018-12-14] MEDS ORDERED: METOPROLOL TARTRATE 1 MG/ML 5ML VIAL IV SCH ×2 (12:45→18:00)
[2018-12-14] MEDS ORDERED: HYDROXYZINE HCL 10 MG TABLET PO PRN (13:15)
--- NOTE | 2018-12-14 16:57 | NUR ---
DOROTHY note met with patient and daughter Anabell, lives out of town. pt unable to answer questions, per daughter resides at home with Kumar, son in law, and her grandchildren. [facility] has a provider 4hrs daily, states pts daughter Lis also assists her. and transports her to md as needed. [facility] pt has become weaker and weaker lately. [facility] has a w/c and shower chair, but doesnt use them. [facility] for now dc plan is back to home, but will await to see how pt responds. she states pt's daughter Lis will be here in am to speak to md regarding pt progrnosis and get update.Primary nurse Cristina aware and has updated md. Addendum: 12/14/18 at 1703 by MARVEL RILEY CM Amended: Links added.
[2018-12-14 17:20] LABS: APPEARANCE,URINE Cloudy (CLEAR); BILIRUBIN,URINE Large (NEGATIVE); COLOR,URINE Dark Yellow (YELLOW); GLUCOSE, URINE (UA) Negative (NEGATIVE); KETONES,URINE Negative (NEGATIVE); LEUKOCYTE ESTERASE ,URINE Large (NEGATIVE); NITRATE,URINE Positive (NEGATIVE); OCCULT BLOOD,URINE Large (NEGATIVE); PROTEIN,URINE POS 1+ mg/dL (NEGATIVE)
[2018-12-14 17:22] LABS: SODIUM,URINE RANDOM 17 mmol/l (40-220)
[2018-12-14 17:55] LABS: BACTERIA,URINE Moderate /HPF (None Seen)
[2018-12-14] MEDS ORDERED: MORPHINE SULFATE 2 MG/ML 1ML SYG IVP PRN (18:00)
[2018-12-14] MEDS ORDERED: MORPHINE SULFATE 2 MG/ML 1ML SYG ONE (18:05)
[2018-12-14] MEDS ORDERED: TRAMADOL HCL 50 MG TABLET PO PRN (18:30)
[2018-12-14] MEDS: HEPARIN SODIUM 5000UNIT/ML 1ML VIAL SQ SCH (21:01)
[2018-12-15 03:00] VITALS: BP 130/62
[2018-12-15 04:31] LABS: HEMATOCRIT 27.2 % (36-48); MEAN CORPUSCULAR VOLUME 108.9 fL (79-99); NUCLEATED RED BLOOD CELLS 0.1 % (0.0-0.19); PLATELET COUNT (AUTO) 162 K/uL (130-400); RED CELL DISTRIBUTION WIDTH 20.2 % (11.0-15.5)
[2018-12-15 04:34] LABS: % IRON SATURATION 46.1 % (22-44)
[2018-12-15 04:35] LABS: HEMOGLOBIN A1C 6.7 % (4.0-6.0); INR 1.17 (0.85-1.15); PARTIAL THROMBOPLASTIN TIME 32.6 SEC (26.3-35.5); PROTHROMBIN TIME 12.2 SEC (9.6-11.6)
[2018-12-15 04:43] LABS: CREATININE 2.5 mg/dL (0.5-1.5); MAGNESIUM 2.6 mg/dL (1.80-2.40); PHOSPHORUS 3.7 mg/dL (2.5-4.9); POTASSIUM 5.1 mmol/L (3.5-5.1)
[2018-12-15 05:09] LABS: BAND NEUTROPHILS % (MANUAL) 6 % (0-2); EOSINOPHILS % (MANUAL) 3 % (1-6); LYMPHOCYTES % (MANUAL) 5 % (22-44); MAN.DIFF COMMENT-IMPRESSION MANUAL DIFFERENTIAL; MONOCYTES % (MANUAL) 6 % (2-9); SEGMENTED NEUTROPHILS % 80 % (40-70)
[2018-12-15 05:11] LABS: PLATELET MORPHOLOGY COMMENT ADEQUATE
[2018-12-15] MEDS: INSULIN HUMULIN R 100 UNIT/ML 3ML SQ SCH ×4 (06:32→21:00)
[2018-12-15] MEDS: LACTULOSE 20 GM/30 ML UDCUP PO SCH ×3 (06:55→22:06)
[2018-12-15 07:28] VITALS: BP 127/61
[2018-12-15] MEDS: THIAMINE HCL 100 MG TABLET PO SCH (08:39)
[2018-12-15] MEDS: FOLIC ACID 1 MG TABLET PO SCH (08:39)
[2018-12-15] MEDS: LEVOFLOXACIN 500 MG/D5W 100 ML 100 ML IV SCH (08:39)
[2018-12-15] MEDS: HEPARIN SODIUM 5000UNIT/ML 1ML VIAL SQ SCH ×2 (08:41→22:09)
[2018-12-15 11:14] VITALS: BP 140/67
[2018-12-15] MEDS: RIFAXIMIN 550 MG TABLET PO SCH ×2 (11:49→22:07)
[2018-12-15] MEDS ORDERED: EPOETIN ALFA 10,000 UNIT/ML VIAL SQ SCH (12:15)
[2018-12-15 15:25] VITALS: BP 122/60
[2018-12-15 20:29] VITALS: BP 139/71
[2018-12-15] MEDS: SODIUM BICARBONATE 650 MG TAB PO SCH (22:07)
[2018-12-16 00:21] VITALS: BP 128/63
[2018-12-16] MEDS: SODIUM CHLORIDE 0.9% 1000ML 3,000 ML IV SCH (01:34)
[2018-12-16 03:47] LABS: BASOPHILS % (AUTO) 0.9 % (0.0-5.0); EOSINOPHILS % (AUTO) 2.8 % (0.0-8.0); HEMATOCRIT 26.4 % (36-48); LYMPHOCYTES % (AUTO) 7.8 % (21.0-51.0); MEAN CORPUSCULAR HEMOGLOBIN 36.8 pg (27.0-33.0); MEAN CORPUSCULAR HGB CONC 33.6 g/dL (32.0-36.0); MEAN CORPUSCULAR VOLUME 109.5 fL (79-99); MONOCYTES % (AUTO) 7.7 % (3.0-13.0); NEUTROPHILS % (AUTO) 80.8 % (40.0-77.0); NUCLEATED RED BLOOD CELLS 0.1 % (0.0-0.19); PLATELET COUNT (AUTO) 163 K/uL (130-400); RED BLOOD CELL COUNT(AUTO) 2.41 MIL/uL (4.00-5.50); RED CELL DISTRIBUTION WIDTH 19.7 % (11.0-15.5); WHITE BLOOD COUNT (AUTO) 9.2 K/uL (4.8-10.8)
[2018-12-16 03:59] LABS: INR 1.19 (0.85-1.15); PARTIAL THROMBOPLASTIN TIME 38.3 SEC (26.3-35.5); PROTHROMBIN TIME 12.5 SEC (9.6-11.6)
[2018-12-16 04:01] LABS: ALBUMIN 1.9 g/dL (3.5-5.0); BILIRUBIN,TOTAL 9.1 mg/dL (0.2-1.0); CREATININE 2.4 mg/dL (0.5-1.5); POTASSIUM 5.2 mmol/L (3.5-5.1); TOTAL PROTEIN, SERUM 5.9 g/dL (6.0-8.3)
[2018-12-16 04:38] VITALS: BP 123/64
[2018-12-16] MEDS: LACTULOSE 20 GM/30 ML UDCUP PO SCH ×2 (05:02→14:15)
[2018-12-16] MEDS: INSULIN HUMULIN R 100 UNIT/ML 3ML SQ SCH ×3 (06:21→17:52)
[2018-12-16 07:14] VITALS: BP 137/62
[2018-12-16] MEDS: LEVOFLOXACIN 500 MG/D5W 100 ML 100 ML IV SCH (09:38)
[2018-12-16] MEDS: SODIUM BICARBONATE 650 MG TAB PO SCH (09:39)
[2018-12-16] MEDS: FOLIC ACID 1 MG TABLET PO SCH (09:39)
[2018-12-16] MEDS: THIAMINE HCL 100 MG TABLET PO SCH (09:39)
[2018-12-16] MEDS: RIFAXIMIN 550 MG TABLET PO SCH (09:39)
[2018-12-16] MEDS: HEPARIN SODIUM 5000UNIT/ML 1ML VIAL SQ SCH (09:44)
[2018-12-16 11:31] VITALS: BP 120/73
[2018-12-16 15:24] VITALS: BP 110/51
[2018-12-16] MEDS ORDERED: FUROSEMIDE 10 MG/ML 4ML VIAL IV SCH (15:45)
[2018-12-16] MEDS ORDERED: LACT PO (15:46)
[2018-12-16] MEDS ORDERED: LEVO500T2 PO (15:46)
[2018-12-16] MEDS ORDERED: FURO40TA5 PO (15:46)
[2018-12-16] MEDS ORDERED: SODI650T PO (15:46)
--- NOTE | 2018-12-16 17:45 | NUR ---
Patient discharged in stable condition. IV removed from left ac. Patient states she already f/u with Dr. Dallas Waterman for tomorrow and Dr. Blackwood 12/19/18. Patient instructed on importance of taking lactulose and not skipping dose. Patient instructed on discontinued medications Lisinopril and Spirinolactone. Instructed on new prescription medications and how to take. Patient to f/u with [facility] in 3-5 days. Discharge packet discussed. Pt/daughter verbalized understanding to all teaching. No other questions or concerns.
== END 2018-12-16 18:09 | disposition home or self-care (01) | DRG 280 ==
LOC: EDH 21:51 → EDHIP 21:52 → 2DH 12-14 01:35
PROVIDERS: ADMIT Hospitalist; ATTEND Hospitalist
DX: K70.40 Alcoholic hepatic failure without coma (principal); K70.31 Alcoholic cirrhosis of liver with ascites; G93.41 Metabolic encephalopathy; D69.6 Thrombocytopenia, unspecified; E11.22 Type 2 diabetes mellitus with diabetic chronic kidney disease; E87.2 Acidosis; N17.9 Acute kidney failure, unspecified; E87.1 Hypo-osmolality and hyponatremia; N18.4 Chronic kidney disease, stage 4 (severe); E87.5 Hyperkalemia; D64.9 Anemia, unspecified; I12.9 Hypertensive chronic kidney disease with stage 1 through stage 4 chronic kidney disease, or unspecified chronic kidney disease; Z91.19 Patient's noncompliance with other medical treatment and regimen; Z79.899 Other long term (current) drug therapy; Z88.5 Allergy status to narcotic agent; Z88.8 Allergy status to other drugs, medicaments and biological substances; Z83.3 Family history of diabetes mellitus; Z82.49 Family history of ischemic heart disease and other diseases of the circulatory system; Z82.0 Family history of epilepsy and other diseases of the nervous system
CPT/HCPCS: 36415; 74176; 80048; 80053; 81001; 82140; 82550; 82948; 83036; 83540; 83550; 83605; 83690; 83735; 84100; 84132; 84300; 84484; 85025; 85610; 85730; 87040; 93005; 97039; G0378; J0610; J0885; J1200; J1644; J1815; J1940; J1956; J2405; J2765; J3490; J7030